=== PATIENT | male | born 1940 | race Caucasian/White ===

== ENCOUNTER 2016-06-14 20:34 | Emergency (ER) | payer OTHER ==
[2016-06-14 23:26] VITALS: BP 116/79
== END 2016-06-14 23:26 | disposition home or self-care (01) ==
LOC: ED 20:34
DX: G89.29 Other chronic pain (principal); M25.552 Pain in left hip; M25.551 Pain in right hip; I10 Essential (primary) hypertension; M81.0 Age-related osteoporosis without current pathological fracture; Z88.2 Allergy status to sulfonamides; Z88.6 Allergy status to analgesic agent
CPT/HCPCS: J1885; J3010; Q0162

== ENCOUNTER 2016-07-03 21:29 | Inpatient (IN) | payer OTHER ==
[~2016-07-03] VITALS: Ht 157.5 cm; Wt 59.0 kg
[2016-07-03 22:32] LABS: BASOPHIL % 1.2 % (0-2); PLATELET COUNT 257 x10^3mcL (130-400)
[2016-07-03 22:35] LABS: RED CELL DISTRIBUTION WIDTH 15.5 % (11.5-14.5)
[2016-07-03 22:48] LABS: CHLORIDE SERUM 106 mmol/L (98-107); CREATININE SERUM 1.1 mg/dL (0.7-1.3); GLUCOSE SERUM 90 mg/dL (74-106); POTASSIUM SERUM 4.1 mmol/L (3.5-5.1); SODIUM SERUM 143 mmol/L (136-145)
[2016-07-03 22:52] LABS: ALBUMIN 3.7 g/dL (3.4-5.0); ALKALINE PHOSPHATASE 93 U/L (46-116); ALT/SGPT 24 U/L (16-63); AST/SGOT 20 U/L (15-37); BILIRUBIN TOTAL 0.28 mg/dL (0.20-1.00); TOTAL PROTEIN, SERUM 7.4 g/dL (6.4-8.2)
[2016-07-04] MEDS ORDERED: FLOMAX0.4 MG (00:41)
[2016-07-04] MEDS ORDERED: XANAX0.25 MG (00:41)
[2016-07-04] MEDS ORDERED: RANITIDINE15 MG/M1 (00:42)
[2016-07-04] MEDS ORDERED: DURAGESIC100 MCG/HR (00:42)
[2016-07-04] MEDS ORDERED: MOVANTIK12.5 MG (00:42)
[2016-07-04] MEDS ORDERED: ROZEREM8 M1 (00:42)
[2016-07-04] MEDS ORDERED: GABAPENTIN100 M2 (00:42)
[2016-07-04] MEDS ORDERED: COUMADIN1 MG (00:42)
[2016-07-04] MEDS ORDERED: METOPROLOL SUCC25 M2 (00:42)
[2016-07-04 01:35] VITALS: BP 157/90
[2016-07-04 02:01] LABS: CHOLESTEROL/HDL RATIO 3.4
[2016-07-04 02:09] LABS: FREE T4 1.11 ng/dL (0.76-1.46); FREE THYROXINE INDEX 2.6 ug/dL (1.4-4.5); T4(THYROXINE) 7.7 ug/dL (4.7-13.3)
[2016-07-04 02:20] LABS: T3 TOTAL 0.92 ng/mL
[2016-07-04 04:14] LABS: microscopic required? YES; urine erythrocyte 1+ (NEGATIVE)
[2016-07-04 05:49] VITALS: BP 122/70
[2016-07-04 08:23] VITALS: Ht 157.5 cm; Wt 59.0 kg
[2016-07-04 09:13] VITALS: BP 133/77
[2016-07-04 13:30] VITALS: BP 124/61
[2016-07-04 18:00] VITALS: BP 150/77
[2016-07-04 20:24] VITALS: BP 143/78
[2016-07-05 06:19] LABS: CALCIUM 8.9 mg/dL (8.5-10.1); CARBON DIOXIDE 31.2 mmol/L (21-32); CHLORIDE SERUM 110 mmol/L (98-107); GLUCOSE SERUM 93 mg/dL (74-106); MAGNESIUM 2.2 mg/dL (1.8-2.4); PHOSPHOROUS 3.5 mg/dL (2.5-4.9); POTASSIUM SERUM 4.5 mmol/L (3.5-5.1); SODIUM SERUM 144 mmol/L (136-145)
[2016-07-05 06:43] VITALS: BP 106/73
[2016-07-05 06:46] LABS: BASOPHIL % 0.6 % (0-2); PLATELET COUNT 221 x10^3mcL (130-400)
[2016-07-05 06:51] LABS: RED CELL DISTRIBUTION WIDTH 15.1 % (11.5-14.5)
[2016-07-05 10:30] VITALS: BP 144/71
[2016-07-05 14:35] VITALS: BP 143/77
[2016-07-05 17:50] VITALS: BP 164/86
[2016-07-05 22:03] VITALS: BP 137/77
[2016-07-06 05:56] VITALS: BP 125/66
[2016-07-06 10:11] VITALS: BP 158/81
[2016-07-06 10:12] VITALS: BP 158/81
[2016-07-06 13:13] VITALS: BP 150/64
[2016-07-06] MEDS ORDERED: XARELTO10 M1 PO (16:03)
[2016-07-06 16:10] VITALS: BP 150/64
[2016-07-06 17:27] VITALS: BP 156/82
== END 2016-07-06 20:30 | disposition home or self-care (01) | DRG 948 ==
LOC: ED 21:29 → DU 07-04 00:42 → MU 07-04 00:42 → DU 07-04 01:19 → MU 07-06 15:48
PROVIDERS: Emergency Medicine; ADMIT Family Medicine
DX: R79.1 Abnormal coagulation profile (principal); J84.9 Interstitial pulmonary disease, unspecified; T45.515A Adverse effect of anticoagulants, initial encounter; I48.91 Unspecified atrial fibrillation; I83.009 Varicose veins of unspecified lower extremity with ulcer of unspecified site; I10 Essential (primary) hypertension; M25.559 Pain in unspecified hip; M54.9 Dorsalgia, unspecified; M81.0 Age-related osteoporosis without current pathological fracture; M21.372 Foot drop, left foot; G89.29 Other chronic pain; Z79.01 Long term (current) use of anticoagulants; Z86.711 Personal history of pulmonary embolism; Z86.718 Personal history of other venous thrombosis and embolism; Z85.46 Personal history of malignant neoplasm of prostate; Z90.79 Acquired absence of other genital organ(s); Z68.23 Body mass index [BMI] 23.0-23.9, adult; Y92.009 Unspecified place in unspecified non-institutional (private) residence as the place of occurrence of the external cause
CPT/HCPCS: 83880; 84439; 97530-GP; J2270; J2405; J2800; J3010; J7030; Q0092; Q0162

== ENCOUNTER 2016-11-03 18:42 | Observation (INO) | payer OTHER ==
[~2016-11-03] VITALS: Ht 160 cm; Wt 54.9 kg
[~2016-11-03 18:42] MED LIST: COUMADIN1 MG; DURAGESIC100 MCG/HR; FLOMAX0.4 MG; GABAPENTIN100 M2; METOPROLOL SUCC25 M2; MOVANTIK12.5 MG; RANITIDINE15 MG/M1; ROZEREM8 M1; XANAX0.25 MG; XARELTO10 M1 PO
--- NOTE | 2016-11-03 18:50 | NUR ---
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 PER MEDIC "PATIENT'S FAMILY NOTICED HE WAS MORE LETHARGIC THAN USUAL". PT IS BED BOUND. DENIES ANY PAIN OR DISCOMFORT. STS HE HAS BED SORES ON HIS [place]YX REGION THAT HAVE NO "BROKEN" YET. PT IS AAOX4. RESPS E/U. NO S/S OF DISTRESS NOTED. VSS. COMFORT MEASURES IMPLEMENTED. CALL LIGHT W/IN REACH. DR. SHAH AT BEDSIDE FOR MSE. WILL CONTINUE TO MONITOR.
--- NOTE | 2016-11-03 19:09 | NUR ---
REPORT GIVEN TO CHITO GARSIA FOR CONTINUATION OF CARE PRIMARY RN.
[2016-11-03] MEDS ORDERED: METOPROLOL TART25 M1 PO (19:21)
[2016-11-03] MEDS ORDERED: CATAPRES0.1 MG PO (19:21)
[2016-11-03] MEDS ORDERED: XAN1 PO (19:22)
[2016-11-03] MEDS ORDERED: TAMSULOSIN HYD0.4 M1 PO (19:22)
[2016-11-03] MEDS ORDERED: DIGOXIN0.125 M1 PO (19:23)
[2016-11-03] MEDS ORDERED: NATURE'S BLEND500 M3 PO (19:23)
[2016-11-03] MEDS ORDERED: DURAGESIC100 MCG/HR TOP (19:24)
[2016-11-03] MEDS ORDERED: ZANTAC 300300 MG PO (19:25)
[2016-11-03] MEDS ORDERED: COLACE100 MG PO (19:25)
[2016-11-03] MEDS ORDERED: TYL500 PO (19:26)
[2016-11-03] MEDS ORDERED: GABAPENTIN800 M1 PO (19:26)
[2016-11-03] MEDS ORDERED: MOVANTIK25 MG PO (19:27)
[2016-11-03] MEDS ORDERED: LEVORPHANOL TART2 MG PO (19:28)
[2016-11-03] MEDS ORDERED: LYRICA75 M1 PO (19:28)
[2016-11-03 19:29] LABS: BASOPHIL % 0.2 % (0-2); PLATELET COUNT 231 x10^3mcL (130-400); RED CELL DISTRIBUTION WIDTH 13.8 % (11.5-14.5)
[2016-11-03] MEDS ORDERED: COUMADIN1 MG PO ×2 (19:29→22:35)
--- NOTE | 2016-11-03 19:30 | NUR ---
MED REC COMPLETED USING LIST FROM [facility]
--- NOTE | 2016-11-03 19:40 | NUR ---
PT TO CT VIA [facility].
[2016-11-03 19:54] LABS: FREE T4 1.42 ng/dL (0.76-1.46); T4(THYROXINE) 10.9 ug/dL (4.7-13.3)
[2016-11-03 19:56] LABS: ALBUMIN 3.4 g/dL (3.4-5.0); ALKALINE PHOSPHATASE 77 U/L (46-116); ALT/SGPT 24 U/L (16-63); AST/SGOT 25 U/L (15-37); BILIRUBIN TOTAL 0.65 mg/dL (0.20-1.00); C REACTIVE PROTEIN 3.3 mg/dL (<=0.9); CALCIUM 9.2 mg/dL (8.5-10.1); CARBON DIOXIDE 33.5 mmol/L (21-32); CHLORIDE SERUM 96 mmol/L (98-107); CREATININE SERUM 1.2 mg/dL (0.7-1.3); GLUCOSE SERUM 140 mg/dL (74-106); SODIUM SERUM 137 mmol/L (136-145); T3 TOTAL 1.09 ng/mL; TOTAL PROTEIN, SERUM 7.5 g/dL (6.4-8.2)
[2016-11-03 19:59] LABS: POTASSIUM SERUM 2.5 mmol/L (3.5-5.1)
[2016-11-03 20:11] LABS: CK-MB 0.9 ng/mL (0-3.6)
--- NOTE | 2016-11-03 20:26 | NUR ---
PT MEDICATED PER ORDER. SEE EMAR. POTASSIUM INFUSING WITH NS FOR COMFORT.
[2016-11-03 20:27] LABS: microscopic required? YES; urine erythrocyte 2+ (NEGATIVE)
--- NOTE | 2016-11-03 20:27 | NUR ---
PT SLEEPING IN BED WITH, RESP EVEN ADN UNLAOBORED, ON FULL CM.
--- NOTE | 2016-11-03 21:07 | NUR ---
REPORT GIVEN TO CHITO EDGE TO ASSUME CARE OF PT. 2ND BAG OF POTASSIUM ENDORSED TO CONTINUE IN ROOM.
--- NOTE | 2016-11-03 21:13 | NUR ---
PT TRANSFERRED TO TELE BED 217A VIA [facility] WITH CHITO LUO AND EMT ALBARO AT PT SIDE. PT ON CM, NO ACUTE DISTRESS NOTED, RESP EVEN AND UNLABORED, TRANSFERRED WITHOUT INCIDENCE.
[2016-11-03 21:35] LABS: CHOLESTEROL/HDL RATIO 2.7
[2016-11-03 21:47] VITALS: BP 106/67
--- NOTE | 2016-11-03 22:02 | NUR ---
RECEIVED PATIENT FROM ED VIA [facility]ERNEY, PATIENT ALERT AND ORIENTED SPOUSE AT BEDSIDE, TELE # 26 SR, IV ACCESS TO R WRIST WNL, C/O PAIN TO BLE WILL MEDICATE ORDERED, ORIENTED PATIENT TO ROOM AND SURROUNDINGS, BED IN LOW POSITION, BED RAILS UP X 2, CALL LIGHT WITHIN REACH, WILL CONTINUE TO MONITOR
[2016-11-04 00:50] LABS: ERYTHROCYTE SED RATE 9 mm/hr (0-20)
[2016-11-04 06:25] LABS: BASOPHIL % 0.3 % (0-2); PLATELET COUNT 209 x10^3mcL (130-400); RED CELL DISTRIBUTION WIDTH 13.9 % (11.5-14.5)
[2016-11-04 06:38] VITALS: BP 104/63
--- NOTE | 2016-11-04 06:41 | NUR ---
PATIENT RESTING IN BED, IN NO ACUTE DISTRESS, NO C/O PAIN AT THIS TIME, NO SIGNIFICANT CHANGES LAST SHIFT, BED IN LOW POSITION, BED RAILS UP X 2, CALL LIGHT WITHIN REACH, WILL ENDORSE CARE TO AM NURSE
[2016-11-04 07:10] LABS: CALCIUM 8.6 mg/dL (8.5-10.1); CARBON DIOXIDE 31.7 mmol/L (21-32); CHLORIDE SERUM 101 mmol/L (98-107); GLUCOSE SERUM 108 mg/dL (74-106); MAGNESIUM 2.9 mg/dL (1.8-2.4); PHOSPHOROUS 1.7 mg/dL (2.5-4.9); POTASSIUM SERUM 3.9 mmol/L (3.5-5.1); SODIUM SERUM 138 mmol/L (136-145)
--- NOTE | 2016-11-04 08:00 | NUR ---
AWAKE AND ALERT TO NAME, , DATE AND TIME. SPEECH CLEAR. TEMP 99.6. TELE #26 SINUS RHYTHM RATE 75. RESP 18 EVEN BREATH SOUNDS CLEAR. NO COUGH OR SOB. PULSE OX 94% ON RA. ABD SOFT, BOWEL TONES PRESENT. LBM THIS AM. HX OF URINARY INCONTINENCE. ATTEMPTS TO USE URINAL. WILL CONTINUE TO MONITOR OUTPUT. NO EDEMA. PULSES PRESENT. SCD IN PLACE. IV PATENT RIGHT WRIST INFUSING NORMAL SALINE RATE INCREASED TO 150CC/HR. ON AIR MATTRESS FOR PRESSURE RELIEF. SIDE RAILS UP X2. CALL LIGHT IN REACH. CONTACT ISOLATION MAINTAINED FOR POSITIVE MRSA NARES.
--- NOTE | 2016-11-04 09:10 | NUR ---
DR DURBIN AND MEDICAL TEAM IN ON ROUNDS. CHARGE AND PRIMARY NURSE PRESENT. DISCUSSED DX UTI AND PLAN OF CARE. CONTINUE IV ANTIBIOTICS ORDERED. CALL LIGHT IN REACH.
[2016-11-04 09:20] VITALS: BP 110/62
[2016-11-04 14:05] VITALS: BP 104/55
--- NOTE | 2016-11-04 14:30 | NUR ---
SPOKE WITH DR VYAS RE:PT UNABLE TO URINATE. STATES "AT HOME USES URINAL. HAD RADICAL PROSTATECTOMY YEARS AGO FOR CANCER. NO PROBLEMS SINCE." ORDER TO INSERT PRIETO CATH. ATTEMPT INSERTION OF PRIETO CATH 16F. UNABLE TO PASS CATHETER DUE TO RESISTANCE.
--- NOTE | 2016-11-04 14:45 | NUR ---
DR VYAS HERE. UPDATED WITH PRIETO CATH SITUATION. ORDER TO ATTEMPT TO INSERT COUDE CATHETER DUE TO URINE RETENTION.
--- NOTE | 2016-11-04 14:50 | NUR ---
COUDE TIP 14F PIRETO CATH INSERTED WITH MODERATE OBSTRUCTION. ABLE TO REACH BLADDER AND URINE SOLEDAD COLOR BEGAN TO FLOW. BALLOON INFLATED WITH 10CC WATER TO GRAVITY DRAINAGE. URINE OUTPUT 250CC SOLEDAD. PT REPORTS "FEELS BETTER."
--- NOTE | 2016-11-04 14:57 | NUR ---
SPOKE WITH DR VYAS. PLAN TO BE DISCHARGED HOME TODAY WITH PRIETO CATH IN PLACE.
--- NOTE | 2016-11-04 15:00 | NUR ---
DR VYAS UPDATED WITH POSITIVE MRSA RESULTS. PROTOCOL STARTED.
--- NOTE | 2016-11-04 15:20 | NUR ---
PT C/O GENERALIZED "BODY ACHES 10/29." MED WITH NORCO ES ORDERED. STATES "I USUALLY TAKE THE FENTANYL STICKS 1200MG TID, OXYCONTIN AND FENTANYL PATCH." DISCUSSED WITH DR VYAS.
--- NOTE | 2016-11-04 16:00 | NUR ---
REPORTS "PAIN DOWN TO 5/10." AWAITING DISCHARGE HOME. [employer] SET UP TO [facility]. UPDATED ON PHONE.
--- NOTE | 2016-11-04 16:17 | NUR ---
Initial Nutrition Assessment Dx: weakness, severe hypokalemia PMHx: Atrial fibrillation, HTN, BPH s/p prostatectomy, osteoarthritis, GERD PSHx: Appendectomy, prostatectomy, tonsillectomy, left hip replacement, IVC filter Labs: (11/04) B, Phos:1.7L, M.9H, (11/03) A1c:5.7 Meds: Colace, Lactinex, Neutra-phos, NS IVF, Zofran. Diet:CCHO PO Intake: (11/04)B:75% Ht: 63in,5'3 Wt: 121#, 54.94kg BMI:21.5kg/m2 (normal weight) IBW: 124#, 56kg %IBW: 98% UBW:130# x 2months Age:76 Food Allergies:None Skin:Rash BLE, stage 1 sacral decubitis. Ephraim:16 Edema: None GI: Last BM:11/03, formed Nursing Trigger:Unintentional wt loss>10# in past month, admitted with potential risk diagnosis and poor PO intake>3days. Pt admitted with Metabolic encephalopathy 2/2 hypokalemia, K 2.5, per H&P. Per progress note, no acute events overnight. Pt with coumadin toxicity with supratherapeutic INR. qualifies for Xeralto and will be started on a starter pack.Per bed huddle this morning, pt's potassium is WNL and will discharge today. During visit, pt reported fair appetite (ate 80% breakfar and 50% lunch) Pt states that he is missing teeth and only has three teeth left, one fell out yesterday due to his osteoporosis. Pt does not want texture change but is open to supplements. Pt was supposed to discharge today but they are waiting for pt to void before discharging him. Problem with: N: NoV: No D:No C:No Problems with: Chewing:yes, pt with missing teeth. Swallowing: No Current appetite: fair Recent wt change:9# wt loss x2 months %wt change:6.9% Vitamin/Supplement use:No Special diet at home:Regular Physical activity:Pt is bedridden with severe osteoarthritis and has fractured both hips, per H&P. Education: Pt did not want any education. Estimated Nutritional Needs Based on actual body weight 55 kg Energy:2515-6671 kcal/d (25-30kcal/kg for stage 1 pressure ulcer for elderly) Protein: 55-66g/d (1-1.2g/kg for stage 1 pressure ulcer) Fluid: 1650ml/d (30ml/kg for stage 1 pressure ulcer) or per doctor Nutrition Diagnosis 1. Inadequate protein/energy intake related to lethargy, SOB and chewing difficulties as evidenced by PO intake 50-80% x 2 meals, ~65%. 2. Increased protein needs related to altered skin integrity as evidenced by pt with Stage 1 sacral decubitis. Intervention 1.Recommend adding Boost Glucose Control TID between meals (provides 750kcal and46g pro) 2. Recommend MVI due to pt with Stage 1 pressure ulcer. Monitor/Evaluate Goal: PO intake at least 75% of estimated needs Monitor: PO intake, Labs, GI function F/U in 3-5 days as moderate risk 11/07-
--- NOTE | 2016-11-04 16:20 | NUR ---
1.Recommend adding Boost Glucose Control TID between meals (provides 750kcal and46g pro) 2. Recommend MVI due to pt with Stage 1 pressure ulcer.
[2016-11-04 17:09] VITALS: BP 104/55
--- NOTE | 2016-11-04 17:30 | NUR ---
TRANSPORTATION HERE. REPORT GIVEN. IV REMOVED CATH TIP INTACT. TELE REMOVED AND RETURNED TO TELE UNIT. INSTRUCTED PT WITH PRIETO CATH CARE AND BAG EMPTYING. ABLE TO HANDS ON RETURN DEMO. EXTRA BAG SENT HOME WITH PT. VERBALIZED UNDERSTANDING. REVIEWED DC INSTRUCTIONS AND MEDS. VERBALIZED UNDERSTANDING. REVIEWED POSITIVE MRSA RESULTS. HIBICLENS AND BACTROBAN GIVEN. VERBALIZED UNDERSTANDING. PRECAUTIONS REVIEWED. PT DC AT THIS TIME VIA GURNEY TO HOME.
[2016-11-04] MEDS ORDERED: HIBICLENS118 ML TOP (17:48)
[2016-11-04] MEDS ORDERED: BACO TOP (17:48)
== END 2016-11-04 17:45 | disposition home health service (06) | DRG 640 ==
LOC: ED 18:42 → DU 20:16
PROVIDERS: Specialist; ADMIT Family Medicine
DX: E87.6 Hypokalemia (principal); G93.41 Metabolic encephalopathy; N17.0 Acute kidney failure with tubular necrosis; N39.0 Urinary tract infection, site not specified; I73.9 Peripheral vascular disease, unspecified; I48.2 Chronic atrial fibrillation; R73.03 Prediabetes; Z79.01 Long term (current) use of anticoagulants; Z22.322 Carrier or suspected carrier of Methicillin resistant Staphylococcus aureus; Z96.642 Presence of left artificial hip joint; Z95.828 Presence of other vascular implants and grafts; Z68.21 Body mass index [BMI] 21.0-21.9, adult
CPT/HCPCS: 36600; 83880; 84439; G0378; J0696; J3475; J3480; J7030

== ENCOUNTER 2016-11-06 00:25 | Emergency (ER) | payer OTHER ==
[~2016-11-06 00:25] MED LIST changes: +BACO TOP; +CATAPRES0.1 MG PO; +COLACE100 MG PO; +COUMADIN1 MG PO; +DIGOXIN0.125 M1 PO; +DURAGESIC100 MCG/HR TOP; +GABAPENTIN800 M1 PO; +HIBICLENS118 ML TOP; +LEVORPHANOL TART2 MG PO; +LYRICA75 M1 PO; +METOPROLOL TART25 M1 PO; +MOVANTIK25 MG PO; +NATURE'S BLEND500 M3 PO; +TAMSULOSIN HYD0.4 M1 PO; +TYL500 PO; +XAN1 PO; +ZANTAC 300300 MG PO
[2016-11-06 01:41] LABS: PLATELET COUNT 188 x10^3mcL (130-400)
[2016-11-06 01:45] LABS: CALCIUM 8.5 mg/dL (8.5-10.1); CARBON DIOXIDE 29.6 mmol/L (21-32); CHLORIDE SERUM 104 mmol/L (98-107); GLUCOSE SERUM 82 mg/dL (74-106); POTASSIUM SERUM 3.3 mmol/L (3.5-5.1); SODIUM SERUM 142 mmol/L (136-145)
[2016-11-06 01:52] LABS: BASOPHIL % 3.6 % (0-2)
[2016-11-06 02:01] LABS: ALKALINE PHOSPHATASE 73 U/L (46-116); ALT/SGPT 22 U/L (16-63); AST/SGOT 29 U/L (15-37); BILIRUBIN TOTAL 0.34 mg/dL (0.20-1.00); TOTAL PROTEIN, SERUM 6.7 g/dL (6.4-8.2)
[2016-11-06 02:06] LABS: ALBUMIN 3.1 g/dL (3.4-5.0)
[2016-11-06 02:07] LABS: CK-MB 2.1 ng/mL (0-3.6)
[2016-11-06 06:13] VITALS: BP 124/72
== END 2016-11-06 07:34 | disposition home or self-care (01) ==
LOC: ED 00:25
PROVIDERS: Emergency Medicine
DX: Z00.00 Encounter for general adult medical examination without abnormal findings (principal); M81.0 Age-related osteoporosis without current pathological fracture; G89.29 Other chronic pain; I10 Essential (primary) hypertension; M54.9 Dorsalgia, unspecified; M25.559 Pain in unspecified hip; Z88.2 Allergy status to sulfonamides; Z88.5 Allergy status to narcotic agent; Z79.01 Long term (current) use of anticoagulants
CPT/HCPCS: 36415; 83880; Q0092

== ENCOUNTER 2017-11-13 16:13 | Emergency (ER) | payer OTHER ==
[~2017-11-13] VITALS: Ht 165.1 cm; Wt 56.7 kg
[2017-11-13 16:19] VITALS: Ht 165.1 cm; Wt 56.7 kg
[2017-11-13 18:49] LABS: CALCIUM 9.5 mg/dL (8.5-10.1); CARBON DIOXIDE 31.8 mmol/L (21-32); CHLORIDE SERUM 101 mmol/L (98-107); CREATININE SERUM 0.9 mg/dL (0.7-1.3); GLUCOSE SERUM 110 mg/dL (74-106); POTASSIUM SERUM 3.1 mmol/L (3.5-5.1); SODIUM SERUM 141 mmol/L (136-145)
[2017-11-13 21:36] VITALS: BP 157/95
== END 2017-11-13 21:36 | disposition home or self-care (01) ==
LOC: ED 16:13
PROVIDERS: Specialist
DX: S46.912A Strain of unspecified muscle, fascia and tendon at shoulder and upper arm level, left arm, initial encounter (principal); M25.552 Pain in left hip; G89.29 Other chronic pain; I10 Essential (primary) hypertension; Z88.2 Allergy status to sulfonamides; Z88.5 Allergy status to narcotic agent; Z98.890 Other specified postprocedural states; W17.89XA Other fall from one level to another, initial encounter; Y93.89 Activity, other specified; Y92.091 Bathroom in other non-institutional residence as the place of occurrence of the external cause; Y99.8 Other external cause status
CPT/HCPCS: 36415; J3010

== ENCOUNTER 2019-04-26 10:14 | Inpatient (IN) | payer OTHER ==
[~2019-04-26] VITALS: Ht 162.6 cm; Wt 68.0 kg
[2019-04-26 11:26] LABS: BASOPHIL % 0.1 % (0-2); PLATELET COUNT 240 x10^3mcL (130-400); RED CELL DISTRIBUTION WIDTH 14.1 % (11.5-14.5)
[2019-04-26] MEDS ORDERED: HORIZANT300 MG PO (12:41)
[2019-04-26] MEDS ORDERED: OXYCONTIN PO (12:41)
[2019-04-26 12:43] LABS: ALBUMIN 3.4 g/dL (3.4-5.0); ALKALINE PHOSPHATASE 91 U/L (46-116); ALT/SGPT 20 U/L (16-63); AST/SGOT 21 U/L (15-37); BILIRUBIN TOTAL 0.5 mg/dL (0.20-1.00); CALCIUM 8.8 mg/dL (8.5-10.1); CARBON DIOXIDE 29.9 mmol/L (21-32); CHLORIDE SERUM 99 mmol/L (98-107); CHOLESTEROL 153 mg/dL (<200); CREATININE SERUM 1.2 mg/dL (0.7-1.3); GLUCOSE SERUM 111 mg/dL (74-106); HDL CHOLESTEROL 53 mg/dL (40-60); SODIUM SERUM 140 mmol/L (136-145); TOTAL PROTEIN, SERUM 7.5 g/dL (6.4-8.2)
[2019-04-26 16:45] VITALS: BP 143/83
[2019-04-26 17:01] VITALS: BP 122/64
[2019-04-26 18:24] VITALS: BP 122/64
[2019-04-26 21:24] VITALS: BP 135/79
[2019-04-27 04:44] VITALS: BP 127/70
[2019-04-27 07:28] LABS: PLATELET COUNT 198 x10^3mcL (130-400); RED CELL DISTRIBUTION WIDTH 14.2 % (11.5-14.5)
[2019-04-27 08:01] LABS: BASOPHIL % 0 % (0-2)
[2019-04-27 08:32] VITALS: BP 131/83
[2019-04-27 12:12] VITALS: BP 135/77
[2019-04-27] MEDS ORDERED: LEVAQUIN750 MG PO (12:17)
[2019-04-27 13:19] VITALS: BP 135/77
[2019-04-27 16:44] VITALS: BP 117/80
[2019-04-27 20:11] LABS: UA SPECIFIC GRAVITY >=1.030 (1.005-1.035); microscopic required? YES; urine erythrocyte 2+ (NEGATIVE)
[2019-04-27 20:37] VITALS: BP 109/69
[2019-04-28 05:21] VITALS: BP 116/68
[2019-04-28 08:54] VITALS: BP 121/71
[2019-04-28 12:07] VITALS: BP 147/92
[2019-04-28 16:09] VITALS: BP 125/72
[2019-04-28 20:38] VITALS: BP 115/85
[2019-04-29 05:23] VITALS: BP 124/75
[2019-04-29 08:22] VITALS: BP 140/90
[2019-04-29 09:08] VITALS: BP 124/75
[2019-04-29 12:18] VITALS: BP 123/73
[2019-04-29 16:26] VITALS: BP 136/88
== END 2019-04-29 17:11 | disposition home or self-care (01) | DRG 193 ==
LOC: ED 10:14 → DU 14:33
PROVIDERS: Emergency Medicine; ADMIT Hospitalist
DX: J18.9 Pneumonia, unspecified organism (principal); J96.20 Acute and chronic respiratory failure, unspecified whether with hypoxia or hypercapnia; E87.6 Hypokalemia; I10 Essential (primary) hypertension; K59.00 Constipation, unspecified; M19.90 Unspecified osteoarthritis, unspecified site; M81.0 Age-related osteoporosis without current pathological fracture; R54 Age-related physical debility; Z99.3 Dependence on wheelchair; Z86.711 Personal history of pulmonary embolism; Z79.01 Long term (current) use of anticoagulants; Z86.718 Personal history of other venous thrombosis and embolism; S72.002S Fracture of unspecified part of neck of left femur, sequela; S72.001S Fracture of unspecified part of neck of right femur, sequela
CPT/HCPCS: 36600; 87804; G0378; J0456; J0696; J7030; J7050; J7060; J7613; Q0092; Q9967